=== PATIENT | female | born 1985 | race Caucasian/White ===

== ENCOUNTER → 2019-12-08 | Outpatient (CLI) | payer SELFPAY ==
[~2019-12-08] MED LIST: AMOXICILLIN 50500 MG PO; CEPHALEXIN500 M1 PO; NORCO 325 MG-51 TAB PO; PRENACARE1 TAB PO; ZANTAC 150MG T150 MG PO
== END ==
LOC: ZCOL.LAB 15:50
DX: Z20.828 Contact with and (suspected) exposure to other viral communicable diseases (principal)